=== PATIENT | female | born 1995 | race Caucasian/White ===

== ENCOUNTER 2018-09-20 11:15 | Observation (INO) | payer OTHER ==
[~2018-09-20] VITALS: Ht 167.6 cm; Wt 67.4 kg
[2018-09-20 11:19] VITALS: BP 126/98
--- NOTE | 2018-09-20 11:30 | NUR ---
REPORT CALLED TO L&D NURSE BY NALINI OLGUIN. PT WHEELCHAIRED TO OB BY LEANN YANCEY.
[2018-09-20 13:08] VITALS: BP 112/70
== END 2018-09-20 13:45 | disposition home or self-care (01) ==
LOC: MED 11:15 → MLD 11:31
PROVIDERS: ADMIT Obstetrics & Gynecology; ATTEND Obstetrics & Gynecology
DX: O26.893 Other specified pregnancy related conditions, third trimester (principal); R10.9 Unspecified abdominal pain; Z3A.28 28 weeks gestation of pregnancy
CPT/HCPCS: 59025; 81000; 99281; G0378